=== PATIENT | male | born 1995 | race Caucasian/White ===

== ENCOUNTER → 2016-11-05 | Outpatient (CLI) | payer BC ==
[~2016-11-05] VITALS: Ht 177.8 cm; Wt 63.0 kg
[~2016-11-05] MED LIST: ACETAMINOPHEN 325 MG TABLET/CAPLET (TYLENOL) ONE; ACETAMINOPHEN 325 MG TABLET/CAPLET (TYLENOL) PO SCH; AZIT-21 PO; AZTH50T; CATHETER FLUSH 10 ML SYR IV PRN; HYDROCORTISONE 100 MG/2 ML (Solu-CORTEF) VIAL IV SCH; HYDROCORTISONE 100 MG/2 ML (Solu-CORTEF) VIAL ONE; INFLIXIMAB FOR IV SCH; LNS30CCR; MNTL10T; MNTL10T PO; MULT1CAP27 PO; MULT1TAB63; NORMAL SALINE IV SCH; OSLT75C PO; PROMETHAZINE INJ 25 MG/ML (PHENERGAN) AMP IV SCH; REMICADE; REMICAID; [UNRECOGNIZED DRUG - OTHER]; [UNRECOGNIZED DRUG - OTHER]; diphenhydrAMINE 50 MG/ML INJ (BENADRYL) IV SCH; diphenhydrAMINE 50 MG/ML INJ (BENADRYL) ONE
[2016-11-05 13:56] LABS: BASOPHILS % (AUTO) 0 % (0-10); EOSINOPHILS # (AUTO) 0.1 10^3/uL (0.0-0.3); EOSINOPHILS % (AUTO) 1 % (0-10); LYMPHOCYTES % (AUTO) 30 % (12-44); MEAN CORPUSCULAR HEMOGLOBIN 29 PG (25-34); MEAN CORPUSCULAR HGB CONC 35 G/DL (32-36); MEAN CORPUSCULAR VOLUME 83 FL (80-99); MEAN PLATELET VOLUME 9.2 FL (7.4-10.4); MONOCYTES # (AUTO) 0.5 X 10^3 (0.0-1.0); MONOCYTES % (AUTO) 7 % (0-12); NEUTROPHILS # (AUTO) 4.3 X 10^3 (1.8-7.8); NEUTROPHILS % (AUTO) 62 % (42-75); PLATELET COUNT 228 10^3/uL (130-400); RED BLOOD COUNT 5.22 10^6/uL (4.35-5.85); RED CELL DISTRIBUTION WIDTH 13.1 % (10.0-14.5); WHITE BLOOD COUNT 6.8 10^3/uL (4.3-11.0)
[2016-11-05 14:14] LABS: ALANINE AMINOTRANSFERASE 16 U/L (0-55); ALBUMIN 4.6 G/DL (3.2-4.5); ANION GAP 10 MMOL/L (5-14); ASPARTATE AMINO TRANSFERASE 16 U/L (5-34); BILIRUBIN,DIRECT 0.1 MG/DL (0.0-0.3); BILIRUBIN,INDIRECT 0.3 MG/DL; BILIRUBIN,TOTAL 0.4 MG/DL (0.1-1.0); BLOOD UREA NITROGEN 14 MG/DL (7-18); BUN/CREATININE RATIO 14; CALCIUM 9.4 MG/DL (8.5-10.1); CARBON DIOXIDE 29 MMOL/L (21-32); CHLORIDE 103 MMOL/L (98-107); CREATININE SERUM 1.02 MG/DL (0.60-1.30); GFR ESTIMATED > 60; GLUCOSE 87 MG/DL (70-105); POTASSIUM 4.2 MMOL/L (3.6-5.0); SODIUM 142 MMOL/L (135-145); TOTAL PROTEIN 6.9 G/DL (6.4-8.2)
[2016-11-05 14:15] VITALS: BP 109/64
[2016-11-05 14:36] LABS: THYROID STIMULATING HORMONE 0.69 UIU/ML (0.35-4.94)
[2016-11-05 16:23] VITALS: BP 109/64
== END ==
LOC: SDC 13:14
PROVIDERS: ATTEND Family Medicine
DX: K50.90 Crohn's disease, unspecified, without complications (principal)
CPT/HCPCS: 36415; 80053; 80076; 84443; 85025; 96365; 96366; 96374; 96375

== ENCOUNTER → 2017-01-01 | Outpatient (CLI) | payer BC ==
[~2017-01-01] MED LIST changes: -ACETAMINOPHEN 325 MG TABLET/CAPLET (TYLENOL) ONE; -ACETAMINOPHEN 325 MG TABLET/CAPLET (TYLENOL) PO SCH; -CATHETER FLUSH 10 ML SYR IV PRN; -HYDROCORTISONE 100 MG/2 ML (Solu-CORTEF) VIAL IV SCH; -HYDROCORTISONE 100 MG/2 ML (Solu-CORTEF) VIAL ONE; -INFLIXIMAB FOR IV SCH; -NORMAL SALINE IV SCH; -PROMETHAZINE INJ 25 MG/ML (PHENERGAN) AMP IV SCH; -diphenhydrAMINE 50 MG/ML INJ (BENADRYL) IV SCH; -diphenhydrAMINE 50 MG/ML INJ (BENADRYL) ONE
[2017-01-02 15:44] LABS: VARICELLA IGM ZOSTER AB <1:10 (<1:10)
[2017-01-05 09:27] LABS: VARICELLA IGG ZOSTER AB 3688.0 H INDEX (0.0-134.9); VARICELLA ZOSTER IGG IMMUNITY POSITIVE (NEGATIVE)
== END ==
LOC: LAB 14:37
PROVIDERS: ATTEND Nurse Practitioner
DX: Z02.0 Encounter for examination for admission to educational institution (principal)
CPT/HCPCS: 36415; 86787

== ENCOUNTER 2017-01-07 13:36 | Outpatient (RCR) | payer BC ==
[~2017-01-07] VITALS: Ht 177.8 cm; Wt 64.4 kg
[2017-01-07 13:41] VITALS: BP 121/67
[2017-01-07] MEDS ORDERED: ACETAMINOPHEN 325 MG TABLET/CAPLET (TYLENOL) PO ONE (14:00)
[2017-01-07] MEDS ORDERED: diphenhydrAMINE 50 MG/ML INJ (BENADRYL) IV SCH (14:00)
[2017-01-07] MEDS ORDERED: LIDOCAINE 1% 10 MG/ML 0.2 ML SYR (FOR IV START) INJ ONE (14:00)
[2017-01-07] MEDS ORDERED: HYDROCORTISONE 100 MG/2 ML (Solu-CORTEF) VIAL IV ONE (14:00)
[2017-01-07] MEDS ORDERED: PROMETHAZINE INJ 25 MG/ML (PHENERGAN) AMP IV ONE (14:00)
[2017-01-07] MEDS ORDERED: inFLIXimab 300 MG/NS 250 ML (EXCEL) IV ONE ×2 (14:00)
[2017-01-07] MEDS ORDERED: LIDOCAINE 1% 10 MG/ML 0.2 ML SYR (FOR IV START) ONE (14:03)
== END 2017-04-07 | disposition home or self-care (01) ==
LOC: SDC 13:36
PROVIDERS: ATTEND Family Medicine
DX: K50.90 Crohn's disease, unspecified, without complications (principal)
CPT/HCPCS: 96365; 96366; 96374; 96375

== ENCOUNTER → 2017-03-13 | Outpatient (CLI) | payer BC ==
[~2017-03-13] VITALS: Ht 177.8 cm; Wt 64.4 kg
[~2017-03-13] MED LIST changes: +ACETAMINOPHEN 325 MG TABLET/CAPLET (TYLENOL) PO SCH; +HYDROCORTISONE 100 MG/2 ML (Solu-CORTEF) VIAL IV SCH; +LIDOCAINE 1% 10 MG/ML 0.2 ML SYR (FOR IV START) ONE; +PROMETHAZINE INJ 25 MG/ML (PHENERGAN) AMP IV SCH; +diphenhydrAMINE 50 MG/ML INJ (BENADRYL) IV SCH; +inFLIXimab 300 MG/NS 250 ML (EXCEL) IV SCH
[2017-03-13 10:55] LABS: BASOPHILS % (AUTO) 0 % (0-10); EOSINOPHILS % (AUTO) 1 % (0-10); LYMPHOCYTES # (AUTO) 1.4 X 10^3 (1.0-4.0); LYMPHOCYTES % (AUTO) 21 % (12-44); MEAN CORPUSCULAR HEMOGLOBIN 28 PG (25-34); MEAN CORPUSCULAR HGB CONC 34 G/DL (32-36); MEAN CORPUSCULAR VOLUME 84 FL (80-99); MEAN PLATELET VOLUME 9.6 FL (7.4-10.4); MONOCYTES # (AUTO) 0.7 X 10^3 (0.0-1.0); MONOCYTES % (AUTO) 11 % (0-12); NEUTROPHILS # (AUTO) 4.4 X 10^3 (1.8-7.8); NEUTROPHILS % (AUTO) 68 % (42-75); PLATELET COUNT 202 10^3/uL (130-400); RED BLOOD COUNT 5.32 10^6/uL (4.35-5.85); RED CELL DISTRIBUTION WIDTH 13.2 % (10.0-14.5); WHITE BLOOD COUNT 6.5 10^3/uL (4.3-11.0)
[2017-03-13 11:21] LABS: ALBUMIN 4.7 GM/DL (3.2-4.5); BILIRUBIN,DIRECT 0.1 MG/DL (0.0-0.3); BILIRUBIN,INDIRECT 0.3 MG/DL; BILIRUBIN,TOTAL 0.4 MG/DL (0.1-1.0); ICTERUS 0.4 (-100-1.9); TOTAL PROTEIN 7.4 GM/DL (6.4-8.2)
[2017-03-13 12:30] VITALS: BP 111/67
== END ==
LOC: SDC 08:41
PROVIDERS: ATTEND Family Medicine
DX: K50.90 Crohn's disease, unspecified, without complications (principal)
CPT/HCPCS: 36415; 80076; 85025

== ENCOUNTER → 2017-05-14 | Outpatient (CLI) | payer BC ==
[~2017-05-14] VITALS: Ht 177.8 cm; Wt 66.7 kg
[~2017-05-14] MED LIST changes: +ACETAMINOPHEN 325 MG TABLET/CAPLET (TYLENOL) ONE; +CATHETER FLUSH 10 ML SYR IV PRN; +HYDROCORTISONE 100 MG/2 ML (Solu-CORTEF) VIAL ONE; -LIDOCAINE 1% 10 MG/ML 0.2 ML SYR (FOR IV START) ONE; +diphenhydrAMINE 50 MG/ML INJ (BENADRYL) ONE
[2017-05-14 09:42] VITALS: BP 104/73
[2017-05-14 10:24] VITALS: BP 104/73
[2017-05-14 13:22] VITALS: BP 104/73
== END ==
LOC: EDSTATUS 04-08 09:00 → SDC 09:00
PROVIDERS: ATTEND Family Medicine
DX: K50.90 Crohn's disease, unspecified, without complications (principal)
CPT/HCPCS: 96365; 96366; 96375

== ENCOUNTER 2018-07-19 15:35 | Outpatient (RCR) | payer BC, OTHER ==
[~2018-07-19 15:35] MED LIST changes: -ACETAMINOPHEN 325 MG TABLET/CAPLET (TYLENOL) ONE; -ACETAMINOPHEN 325 MG TABLET/CAPLET (TYLENOL) PO SCH; -CATHETER FLUSH 10 ML SYR IV PRN; -HYDROCORTISONE 100 MG/2 ML (Solu-CORTEF) VIAL IV SCH; -HYDROCORTISONE 100 MG/2 ML (Solu-CORTEF) VIAL ONE; -PROMETHAZINE INJ 25 MG/ML (PHENERGAN) AMP IV SCH; -diphenhydrAMINE 50 MG/ML INJ (BENADRYL) IV SCH; -diphenhydrAMINE 50 MG/ML INJ (BENADRYL) ONE; -inFLIXimab 300 MG/NS 250 ML (EXCEL) IV SCH
[2018-07-19 15:54] LABS: MEAN PLATELET VOLUME 8.4 FL (7.4-10.4); RED BLOOD COUNT 5.26 10^6/uL (4.35-5.85); RED CELL DISTRIBUTION WIDTH 14.2 % (10.0-14.5); WHITE BLOOD COUNT 8.4 10^3/uL (4.3-11.0)
[2018-09-07] MEDS ORDERED: BUDE9TAB2 PO (10:52)
== END 2018-10-17 | disposition home or self-care (01) ==
LOC: LAB 15:35
PROVIDERS: ATTEND Internal Medicine Gastroenterology
DX: R19.7 Diarrhea, unspecified (principal); K50.00 Crohn's disease of small intestine without complications
CPT/HCPCS: 36415; 82274; 85027; 86141; 87324; 87449; 89055

== ENCOUNTER → 2018-08-02 | Outpatient (CLI) | payer BC ==
[~2018-08-02] MED LIST changes: +BARIUM SUSPENSION 60% (LIQUID EZ PAQUE) 240 ML DOSE PO ONE
--- NOTE | 2018-08-02 11:23 | Diagnostic Imaging Report ---
INDICATION: Crohn's disease. Patient currently complains of weight loss and diarrhea. A small bowel study was performed with serial radiographs of the abdomen after ingestion of barium contrast. In addition, fluoroscopy of the abdomen was performed with spot imaging obtained of the small bowel utilizing 2 minutes and 5 seconds of fluoroscopy. The preliminary radiograph of the abdomen is unremarkable. No bowel obstruction is seen. No pathologic calcifications are seen. Initial radiograph demonstrates contrast within the stomach with prompt passage of barium into proximal small bowel loops which appear unremarkable. The stomach appears unremarkable. There is normal progression of contrast through the small bowel loops. No small bowel obstruction or abnormally dilated small bowel loops are seen. There are some distal small bowel loops in the right lower quadrant which demonstrate some persistent luminal narrowing and slight irregularity, suspicious for involvement by Crohn's disease. No definite fistula formation is seen. Visualized nondistended colon appears unremarkable. IMPRESSION: There does appear to be some inflammation involving distal small bowel loops in the right lower quadrant, suggestive of of active Crohn's. No bowel obstruction or fistula formation is identified. Dictated by: Dictated on workstation # [id number]
== END ==
LOC: RAD 07:41
PROVIDERS: ATTEND Internal Medicine Gastroenterology
DX: K50.90 Crohn's disease, unspecified, without complications (principal)
CPT/HCPCS: 74250

== ENCOUNTER 2018-09-07 10:45 | Outpatient (CLI) | payer BC ==
[~2018-09-07] VITALS: Ht 177.8 cm; Wt 54.9 kg
[~2018-09-07 10:45] MED LIST changes: -BARIUM SUSPENSION 60% (LIQUID EZ PAQUE) 240 ML DOSE PO ONE
[2018-09-07] MEDS ORDERED: BUDE9TAB2 PO (10:52)
== END 2018-09-07 11:31 ==
LOC: PREOP 10:45
PROVIDERS: ATTEND Surgery
DX: Z01.818 Encounter for other preprocedural examination (principal)

== ENCOUNTER → 2018-09-13 | Day surgery (SDC) | payer BC, OTHER ==
[~2018-09-13] VITALS: Ht 177.8 cm; Wt 54.9 kg
[~2018-09-13] MED LIST changes: +BUDE9TAB2 PO; +MIDAZOLAM 2 MG/2 ML (VERSED) VIAL IVP ONE; +MIDAZOLAM 2 MG/2 ML (VERSED) VIAL ONE; +NS IV 500 ML 500 ML IV PRN; +NS IV 500 ML 500 ML ONE; +fentaNYL INJECTION 100 MCG/2 ML AMP IVP ONE; +fentaNYL INJECTION 100 MCG/2 ML AMP ONE
[2018-09-13 10:25] VITALS: BP 96/71
--- OUTSIDE RECORDS SUMMARY | 2018-09-13 10:42 | XMS REPORT ---
Author Author ANDREE ARAUJO [facility] e[employer] Address Unknown Phone Unavailable Care Team Providers Care Automotive Sales Executive Name Role Phone ANDREE ARAUJO CP Unavailable Allergies No Known Allergies Problems Problem Type Condition Code Onset Dates Condition Status Problem MENINGOCOCCAL DX V03.89 Active Assessment Encounter for immunization Z23 Active Problem PPV23 (PNEUMOVAX) DX V03.82 Active Medications No Known Medications Procedures Procedure Coding System Code Date SINGLE IMMUNIZATION ADMIN CPT-4 04236 Aug 29, 2015 GARDASIL (HPV-3 DOSE) CPT-4 78054 Aug 29, 2015 Results No Known Results Immunizations Vaccine Administration Date GARDASIL (HPV-3 DOSE) Aug 29, 2015 Summary Purpose eClinicalWorks Submission
--- OUTSIDE RECORDS SUMMARY | 2018-09-13 10:42 | XMS REPORT | Clinical Summary ---
Author Author [facility] Organization [facility] Address Unknown Phone Unavailable Care Team Providers Care Rayon Tester Name Role Phone PCP Unavailable Source Comments Some departments are not documenting in the electronic medical record. If you do not see the information that you expected, contact Release of Information in the Health Information Management department at [phone] for further assistance in locating additional records.[facility] Allergies Not on File Medications Not on file Active Problems Not on file Social History Date Tobacco Use Types Packs/Day Years Used Never Assessed Sex Assigned at Date Recorded Not on file Industry Job Start Date Occupation Not on file Not on file Not on file Travel End Travel History Travel Start No recent travel history available. Last Filed Vital Signs Not on file Plan of Treatment Health Maintenance Due Date Last Done Comments PHYSICAL (COMPREHENSIVE) 2001 EXAM HIV SCREENING 2009 DTAP/TDAP VACCINES ( - 2012 Tdap) INFLUENZA VACCINE 04/28/2018 Results Not on filefrom Last 3 Months
--- OUTSIDE RECORDS SUMMARY | 2018-09-13 10:42 | XMS REPORT ---
Author Author ANDREE ARAUJO [facility] Address [address] [place] [address] Care Team Providers Care Roller Engraver Name Role Phone GAYLE ANDREE Unavailable PROBLEMS Type Condition ICD9-CM Code [id number] Code Onset Dates Condition Status SNOMED Code Problem PPV23 (PNEUMOVAX) DX V03.82 Active 52206929 Problem MENINGOCOCCAL DX V03.89 Active 48480465 ALLERGIES No Information ENCOUNTERS Encounter Location Date Diagnosis [place] [id number] [place] [address] Jun, Encounter for immunization Z23 [place] [id number] [place] [address] 079[address]- 8556 Dec, Visit for TB skin test Z11.1 [place] [id number] [place] [address] 62752- 8983 Aug, Encounter for immunization Z23 [facility] [id number] [place] [address] 05553- 6641 Mar, GARDASIL (HPV) DX V04.89 [place] [id number] [place] [address] 675[address]- 7927 January, GARDASIL (HPV) DX V04.89 [place] [id number] [place] [address] 54251- 9757 Jun, [place] [id number] [place] [address] 67969- 3601 Jun, [place] [id number] [place] [address] 61789- [phone] Jun, [place] [id number] [place] [address] 69901- 4279 Mar, [facility] [address] [facility] [id number] [place] [address] Nov, IMMUNIZATIONS Vaccine Route Administration Date Status FLUARIX QUAD (3 AND UP) 2017 IM Intramuscular Jul 23, 2017 Administered SOCIAL HISTORY Never Assessed REASON FOR VISIT Flu shot- Gwen Davenport RN PLAN OF CARE VITAL SIGNS MEDICATIONS Unknown Medications RESULTS No Results PROCEDURES Procedure Date Ordered Result Body Site FLUARIX QUAD (3 AND UP) 2017 Jul 23, 2017 SINGLE IMMUNIZATION ADMIN Jul 23, 2017 INSTRUCTIONS MEDICATIONS ADMINISTERED No Known Medications
--- OUTSIDE RECORDS SUMMARY | 2018-09-13 10:42 | XMS REPORT ---
Author Author ANDREE ARAUJO [facility] Address [address] [place] [address] Care Team Providers Care Review Rn Name Role Phone GAYLE ANDREE Unavailable PROBLEMS Type Condition ICD9-CM Code XON89-CT Code Onset Dates Condition Status SNOMED Code Problem PPV23 (PNEUMOVAX) DX V03.82 Active 25556319 Problem MENINGOCOCCAL DX V03.89 Active 26203907 ALLERGIES No Information ENCOUNTERS Encounter Location Date Diagnosis [place] [id number] [place] [address]- [address]3 Jun, Encounter for immunization Z23 [place] [address] [phone] Jun, Encounter for immunization Z23 [place] [id number] [place] [address] 33707- 3131 Dec, Visit for TB skin test Z11.1 [place] [id number] [place] [address] 45896- 7201 Aug, Encounter for immunization Z23 [place] [id number] [place] [address] 60269- 6097 Mar, GARDASIL (HPV) DX V04.89 [place] [id number] [place] [address] 20512- 3313 January, GARDASIL (HPV) DX V04.89 [place] [id number] [place] [address] 94146- 4149 Jun, [place] [id number] [place] [address] 89039- 3101 Jun, [place] [id number] [place] [address] 36375- 2546 Jun, [facility] [address] [facility] [id number] [place] [address] Mar, [facility] [address] [facility] [id number] [address] Nov, IMMUNIZATIONS Vaccine Route Administration Date Status FLULAVAL QUAD 0.5ML (6 MO & UP) 2018 IM Intramuscular Jul 02, 2018 Administered SOCIAL HISTORY Never Assessed REASON FOR VISIT Flu shot-awoods PLAN OF CARE VITAL SIGNS MEDICATIONS Unknown Medications RESULTS No Results PROCEDURES Procedure Date Ordered Result Body Site FLULAVAL QUAD 0.5ML (6 MO AND UP) 2018 Jul 02, 2018 SINGLE IMMUNIZATION ADMIN Jul 02, 2018 INSTRUCTIONS MEDICATIONS ADMINISTERED No Known Medications
--- OUTSIDE RECORDS SUMMARY | 2018-09-13 10:43 | XMS REPORT | Continuity of Care Document ---
Author Author [facility] Organization [facility] Address Unknown Phone Unavailable Allergies Active Description Code Type Severity Reaction Onset Reported/Identified Relationship to Patient Clinical Status Yes mesalamine [id number] Drug Allergy Unknown N/A 08/26/2007 Yes mesalamine [id number] Drug Allergy Mild SWELLING 09/07/2018 Medications There is no data. Problems Date Dx Coded Attending Type Code Diagnosis Diagnosed By 01/22/2009 ANDREE ARAUJO DO V04.81 FLU SHOT 02/22/2009 ANDREE ARAUJO DO V06.5 DT, TETANUS-DIPHTHERIA [Td] 05/17/2009 Ot 555.9 08/21/2009 Ot 555.9 11/20/2009 Ot 555.9 01/22/2010 Ot 555.9 02/28/2010 Ot 555.9 03/24/2010 Ot 555.9 03/24/2010 Ot V58.69 07/29/2010 Ot 555.9 07/29/2010 Ot V58.69 10/21/2010 Ot 555.9 10/21/2010 Ot V58.69 11/23/2010 Ot 079.99 VIRAL INFECTION NOS 11/23/2010 Ot 477.9 ALLERGIC RHINITIS NOS 11/23/2010 Ot 555.9 REGIONAL ENTERITIS NOS 11/23/2010 Ot 780.60 FEVER, UNSPECIFIED 11/23/2010 Ot V58.69 OTH MED,LT, CURRENT USE 05/23/2011 ANDREE ARAUJO DO V05.3 HEP A (PED/ADOL 2-DOSE) DX 10/14/2011 Ot 555.9 REGIONAL ENTERITIS NOS 10/14/2011 Ot V58.69 OTH MED,LT, CURRENT USE 02/17/2012 Ot 555.9 REGIONAL ENTERITIS NOS 02/17/2012 Ot V58.69 OTH MED,LT, CURRENT USE 04/22/2012 ANDREE ARAUJO DO V03.89 MENINGOCOCCAL DX 06/22/2012 Ot 555.9 REGIONAL ENTERITIS NOS 06/22/2012 Ot V58.69 OTH MED,LT, CURRENT USE 07/05/2012 ANDREE ARAUJO DO V03.82 PPV23 (PNEUMOVAX) DX 10/25/2012 Ot 555.9 REGIONAL ENTERITIS NOS 10/25/2012 Ot V58.69 OTH MED,LT, CURRENT USE 04/06/2013 MARY ORDONEZ MD Ot 555.9 REGIONAL ENTERITIS NOS 04/06/2013 MARY ORDONEZ MD Ot V58.69 OTH MED,LT,CURRENT USE 08/16/2014 MARY ORDONEZ MD Ot 555.9 09/04/2014 MARY ORDONEZ MD Ot 555.9 10/12/2014 Ot 783.43 10/12/2014 Ot 555.9 10/12/2014 Ot 259.0 10/12/2014 Ot 555.9 10/12/2014 Ot V58.69 10/12/2014 Ot 555.9 10/12/2014 Ot V58.69 10/12/2014 Ot 555.9 10/12/2014 Ot V58.69 10/12/2014 Ot 555.9 10/12/2014 Ot V58.69 10/12/2014 Ot 555.9 10/12/2014 Ot V58.69 10/12/2014 Ot 490 10/12/2014 Ot 555.9 10/12/2014 Ot 555.9 10/12/2014 Ot V58.69 10/12/2014 Ot 719.47 10/12/2014 MARY ORDONEZ MD Ot 555.9 10/12/2014 MARY ORDONEZ MD Ot 555.9 10/12/2014 MARY ORDONEZ MD Ot 555.9 10/12/2014 MARY ORDONEZ MD Ot 555.9 10/12/2014 MARY ORDONEZ MD Ot 555.9 01/05/2015 Ot 555.9 03/13/2015 MARY ORDONEZ MD Ot 555.9 06/07/2015 MARY ORDONEZ MD Ot 555.9 06/07/2015 MARY ORDONEZ MD Ot V58.69 06/21/2015 MARY ORDONEZ MD Ot 555.9 06/21/2015 APRIL ORDONEZ MDAN J Ot V58.69 08/09/2015 MERY LANDRUM, MARY Martinez Ot 555.9 08/09/2015 MARY ORDONEZ MD Ot V58.69 09/05/2015 MARY ORDONEZ MD Ot K50.90 11/08/2015 ABBEY JACKMAN, JAYSHREE S Ot K50.819 12/06/2015 MARY ORDONEZ MD Ot K50.90 01/09/2016 CONNIEER , JAYSHREE S Ot K50.90 03/02/2016 MARY ORDONEZ MD Ot K50.90 CROHN'S DISEASE, UNSPECIFIED, WITHOUT CO 03/04/2016 MARY ORDONEZ MD Ot K50.90 CROHN'S DISEASE, UNSPECIFIED, WITHOUT CO 03/19/2016 MARY ORDONEZ MD Ot K50.90 CROHN'S DISEASE, UNSPECIFIED, WITHOUT CO 04/09/2016 MARY ORDONEZ MD Ot K50.90 CROHN'S DISEASE, UNSPECIFIED, WITHOUT CO 05/01/2016 CONNIEER , JAYSHREE S Ot K50.90 CROHN'S DISEASE, UNSPECIFIED, WITHOUT CO 05/26/2016 ORENDER DO, JAYSHREE S Ot K50.90 CROHN'S DISEASE, UNSPECIFIED, WITHOUT CO 06/12/2016 ORENDER DO, JAYSHREE S Ot K50.90 CROHN'S DISEASE, UNSPECIFIED, WITHOUT CO 06/13/2016 MARY ORDONEZ MD Ot K50.90 CROHN'S DISEASE, UNSPECIFIED, WITHOUT CO 06/26/2016 Ot 555.9 REGIONAL ENTERITIS NOS 06/26/2016 Ot V58.69 OTH MED,LT, CURRENT USE 06/26/2016 Ot 555.9 REGIONAL ENTERITIS NOS 06/26/2016 Ot V58.69 OTH MED,LT, CURRENT USE 06/26/2016 Ot 555.9 REGIONAL ENTERITIS NOS 06/26/2016 Ot V58.69 OTH MED,LT, CURRENT USE 06/26/2016 Ot 555.9 REGIONAL ENTERITIS NOS 06/26/2016 Ot V58.69 OTH MED,LT, CURRENT USE 06/26/2016 Ot 490 BRONCHITIS NOS 06/26/2016 Ot 555.9 REGIONAL ENTERITIS NOS 06/26/2016 Ot 555.9 REGIONAL ENTERITIS NOS 06/26/2016 Ot V58.69 OTH MED,LT, CURRENT USE 06/26/2016 Ot 719.47 JOINT PAIN- ANKLE 06/26/2016 MERY LANDRUM, MARY Martinez Ot 555.9 REGIONAL ENTERITIS NOS 06/26/2016 MERY LANDRUM, MARY Martinez Ot 555.9 REGIONAL ENTERITIS NOS 06/26/2016 MERY LANDRUM, MARY Martinez Ot 555.9 REGIONAL ENTERITIS NOS 06/26/2016 MERY LANDRUM, MARY Martinez Ot 555.9 REGIONAL ENTERITIS NOS 06/26/2016 MERY LANDRUM, MARY Martinez Ot 555.9 REGIONAL ENTERITIS NOS 06/26/2016 MERY LANDRUM, MARY Martinez Ot 555.9 REGIONAL ENTERITIS NOS 06/26/2016 JAYSHERE LUCIANO DO Ot 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 06/26/2016 JAYSHREE LUCIANO DO Ot K50.90 CROHN'S DISEASE, UNSPECIFIED, WITHOUT CO 06/26/2016 JAYSHREE LUCIANO DO Ot K50.90 CROHN'S DISEASE, UNSPECIFIED, WITHOUT CO 07/02/2016 Ot 555.9 REGIONAL ENTERITIS NOS 07/02/2016 Ot V58.69 OTH MED,LT, CURRENT USE 07/02/2016 Ot 555.9 REGIONAL ENTERITIS NOS 07/02/2016 Ot V58.69 OTH MED,LT, CURRENT USE 07/02/2016 Ot 555.9 REGIONAL ENTERITIS NOS 07/02/2016 Ot V58.69 OTH MED,LT, CURRENT USE 07/02/2016 Ot 490 BRONCHITIS NOS 07/02/2016 Ot 555.9 REGIONAL ENTERITIS NOS 07/02/2016 Ot 555.9 REGIONAL ENTERITIS NOS 07/02/2016 Ot V58.69 OTH MED,LT, CURRENT USE 07/02/2016 Ot 719.47 JOINT PAIN- ANKLE 07/02/2016 MERY LANDRUM, MARY Martinez Ot 555.9 REGIONAL ENTERITIS NOS 07/02/2016 MERY LANDRUM, MARY Martinez Ot 555.9 REGIONAL ENTERITIS NOS 07/02/2016 MERY LANDRUM, MARY Martinez Ot 555.9 REGIONAL ENTERITIS NOS 07/02/2016 MARY ORDONEZ MD Ot V58.69 OTH MED,LT,CURRENT USE 07/02/2016 MARY ORDONEZ MD Ot 555.9 REGIONAL ENTERITIS NOS 07/02/2016 MARY ORDONEZ MD Ot 555.9 REGIONAL ENTERITIS NOS 07/02/2016 MARY ORDONEZ MD Ot 555.9 REGIONAL ENTERITIS NOS 07/02/2016 MARY ORDONEZ MD Ot 555.9 REGIONAL ENTERITIS NOS 07/02/2016 MARY ORDONEZ MD Ot 555.9 REGIONAL ENTERITIS NOS 07/02/2016 MARY ORDONEZ MD Ot V58.69 OTH MED,LT,CURRENT USE 07/02/2016 MARY ORDONEZ MD Ot 555.9 REGIONAL ENTERITIS NOS 07/02/2016 MARY ORDONEZ MD Ot V58.69 OTH MED,LT,CURRENT USE 07/02/2016 MARY ORDONEZ MD Ot 555.9 REGIONAL ENTERITIS NOS 07/02/2016 MARY ORDONEZ MD Ot 555.9 REGIONAL ENTERITIS NOS 07/02/2016 Ot 555.9 REGIONAL ENTERITIS NOS 07/02/2016 MARY ORDONEZ MD Ot 555.9 REGIONAL ENTERITIS NOS 07/02/2016 MARY ORDONEZ MD Ot 555.9 REGIONAL ENTERITIS NOS 07/02/2016 MARY ORDONEZ MD Ot V58.69 OTH MED,LT,CURRENT USE 07/02/2016 MARY ORDONEZ MD Ot K50.90 CROHN'S DISEASE, UNSPECIFIED, WITHOUT CO 07/02/2016 JAYSHREE LUCIANO DO S Ot 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 07/02/2016 ALEXUS LUCIANO DOLINE S Ot K50.90 CROHN'S DISEASE, UNSPECIFIED, WITHOUT CO 07/02/2016 MARY ORDNOEZ MD Ot K50.90 CROHN'S DISEASE, UNSPECIFIED, WITHOUT CO 07/02/2016 ORENDER DOLDJAYSHREE S Ot K50.90 CROHN'S DISEASE, UNSPECIFIED, WITHOUT CO 07/04/2016 NIYAHNDLD CERRATO DOQUELINE S Ot K50.90 CROHN'S DISEASE, UNSPECIFIED, WITHOUT CO 07/08/2016 ORENDER DO, JAYSHREE S Ot K50.90 CROHN'S DISEASE, UNSPECIFIED, WITHOUT CO 07/17/2016 ORENDER DO, JAYSHREE S Ot K50.90 CROHN'S DISEASE, UNSPECIFIED, WITHOUT CO 08/12/2016 MERY LANDRUM, MARY Martinez Ot K50.90 CROHN'S DISEASE, UNSPECIFIED, WITHOUT CO 09/03/2016 MERY LANDRUM, MARY Martinez Ot K50.90 CROHN'S DISEASE, UNSPECIFIED, WITHOUT CO 09/03/2016 MERY LANDRUM, MARY Martinez Ot K50.90 CROHN'S DISEASE, UNSPECIFIED, WITHOUT CO 09/03/2016 RAYMOND PERALTA Ot K50.90 CROHN'S DISEASE, UNSPECIFIED, WITHOUT CO 09/03/2016 RAYMOND PERALTAP Ot K50.90 CROHN'S DISEASE, UNSPECIFIED, WITHOUT CO 09/03/2016 RAYMOND PERALTAP Ot K50.90 CROHN'S DISEASE, UNSPECIFIED, WITHOUT CO 09/17/2016 RAYMOND PERALTA LEARNING OFFICER Ot K50.90 CROHN'S DISEASE, UNSPECIFIED, WITHOUT CO 11/12/2016 ORENDER DO, JAYSHREE S Ot K50.90 CROHN'S DISEASE, UNSPECIFIED, WITHOUT CO 11/14/2016 ORENDER DO, JAYSHREE S Ot K50.90 CROHN'S DISEASE, UNSPECIFIED, WITHOUT CO 11/20/2016 ORENDER DO, JAYSHREE S Ot K50.90 CROHN'S DISEASE, UNSPECIFIED, WITHOUT CO 12/24/2016 ORENDER DO, JAYSHREE S Ot K50.90 CROHN'S DISEASE, UNSPECIFIED, WITHOUT CO 12/24/2016 ORENDER DO, JAYSHREE S Ot K50.90 CROHN'S DISEASE, UNSPECIFIED, WITHOUT CO 01/01/2017 Ot 555.9 REGIONAL ENTERITIS NOS 01/01/2017 Ot V58.69 OTH MED,LT, CURRENT USE 01/01/2017 Ot 490 BRONCHITIS NOS 01/01/2017 Ot 555.9 REGIONAL ENTERITIS NOS 01/01/2017 Ot 555.9 REGIONAL ENTERITIS NOS 01/01/2017 Ot V58.69 OTH MED,LT, CURRENT USE 01/01/2017 Ot 719.47 JOINT PAIN- ANKLE 01/01/2017 MARY ORDONEZ MD Ot 555.9 REGIONAL ENTERITIS NOS 01/01/2017 MARY ORDONEZ MD Ot 555.9 REGIONAL ENTERITIS NOS 01/01/2017 MARY ORDONEZ MD Ot 555.9 REGIONAL ENTERITIS NOS 01/01/2017 MARY ORDONEZ MD Ot V58.69 OTH MED,LT,CURRENT USE 01/01/2017 MARY ORDONEZ MD Ot 555.9 REGIONAL ENTERITIS NOS 01/01/2017 MARY ORDONEZ MD Ot 555.9 REGIONAL ENTERITIS NOS 01/01/2017 MARY ORDONEZ MD Ot 555.9 REGIONAL ENTERITIS NOS 01/01/2017 MARY ORDONEZ MD Ot 555.9 REGIONAL ENTERITIS NOS 01/01/2017 MARY ORDONEZ MD Ot 555.9 REGIONAL ENTERITIS NOS 01/01/2017 MARY ORDONEZ MD Ot V58.69 OTH MED,LT,CURRENT USE 01/01/2017 MARY ORDONEZ MD Ot 555.9 REGIONAL ENTERITIS NOS 01/01/2017 MARY ORDONEZ MD Ot V58.69 OTH MED,LT,CURRENT USE 01/01/2017 MARY ORDONEZ MD Ot 555.9 REGIONAL ENTERITIS NOS 01/01/2017 MARY ORDONEZ MD Ot 555.9 REGIONAL ENTERITIS NOS 01/01/2017 Ot 555.9 REGIONAL ENTERITIS NOS 01/01/2017 MARY ORDONEZ MD Ot 555.9 REGIONAL ENTERITIS NOS 01/01/2017 MARY ORDONEZ MD Ot 555.9 REGIONAL ENTERITIS NOS 01/01/2017 MARY ORDONEZ MD Ot V58.69 OTH MED,LT,CURRENT USE 01/01/2017 MARY ORDONEZ MD Ot K50.90 CROHN'S DISEASE, UNSPECIFIED, WITHOUT CO 01/01/2017 JAYSHREE LUCIANO DO Ot 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 01/01/2017 ORENDER DO, JAYSHREE S Ot K50.90 CROHN'S DISEASE, UNSPECIFIED, WITHOUT CO 01/01/2017 MERY LANDRUM, MARY Martinez Ot K50.90 CROHN'S DISEASE, UNSPECIFIED, WITHOUT CO 01/01/2017 ORENDER DO, JAYSHREE S Ot K50.90 CROHN'S DISEASE, UNSPECIFIED, WITHOUT CO 01/01/2017 ORENDER DO, JAYSHREE S Ot K50.90 CROHN'S DISEASE, UNSPECIFIED, WITHOUT CO 01/01/2017 RAYMOND PERALTA Ot K50.90 CROHN'S DISEASE, UNSPECIFIED, WITHOUT CO 01/01/2017 ORENDER DO, JAYSHREE S Ot K50.90 CROHN'S DISEASE, UNSPECIFIED, WITHOUT CO 01/16/2017 JOVITA DOWELL APRN Ot Z02.0 ENCOUNTER FOR EXAM FOR ADMISSION TO [facility] 02/12/2017 ORENDER DO, JAYSHREE S Ot K50.90 CROHN'S DISEASE, UNSPECIFIED, WITHOUT CO 03/13/2017 ORENDER DO, JAYSHREE S Ot K50.90 CROHN'S DISEASE, UNSPECIFIED, WITHOUT CO 03/17/2017 ORENDER DO, JAYSHREE S Ot K50.90 CROHN'S DISEASE, UNSPECIFIED, WITHOUT CO 03/26/2017 ORENDER DO, JAYSHREE S Ot K50.90 CROHN'S DISEASE, UNSPECIFIED, WITHOUT CO 04/07/2017 ORENDER DO, JAYSHREE S Ot K50.90 CROHN'S DISEASE, UNSPECIFIED, WITHOUT CO 04/08/2017 ORENDER DO, JAYSHREE S Ot K50.90 CROHN'S DISEASE, UNSPECIFIED, WITHOUT CO 05/05/2017 ORENDER DO, JAYSHREE S Ot K50.90 CROHN'S DISEASE, UNSPECIFIED, WITHOUT CO 05/14/2017 ORENDER DO, JAYSHREE S Ot K50.90 CROHN'S DISEASE, UNSPECIFIED, WITHOUT CO 05/14/2017 ORENDER DO, JAYSHREE S Ot K50.90 CROHN'S DISEASE, UNSPECIFIED, WITHOUT CO 05/14/2017 ORENDER DO, JAYSHREE S Ot K50.90 CROHN'S DISEASE, UNSPECIFIED, WITHOUT CO 05/14/2017 ORENDER DO, JAYSHREE S Ot K50.90 CROHN'S DISEASE, UNSPECIFIED, WITHOUT CO 05/14/2017 ORENDER DO, JAYSHREE S Ot K50.90 CROHN'S DISEASE, UNSPECIFIED, WITHOUT CO 05/18/2017 ORENDER DO, JAYSHREE S Ot K50.90 CROHN'S DISEASE, UNSPECIFIED, WITHOUT CO 06/02/2017 ORENDER DO, JAYSHREE S Ot K50.90 CROHN'S DISEASE, UNSPECIFIED, WITHOUT CO 05/16/2018 Ot 555.9 REGIONAL ENTERITIS NOS 05/16/2018 Ot V58.69 OTH MED,LT, CURRENT USE 05/16/2018 Ot 719.47 JOINT PAIN- ANKLE 05/16/2018 MERY LANDRUM, ROABHAY J Ot 555.9 REGIONAL ENTERITIS NOS 05/16/2018 MERY LANDRUM, MARY J Ot 555.9 REGIONAL ENTERITIS NOS 05/16/2018 MARY ORDONEZ MD J Ot 555.9 REGIONAL ENTERITIS NOS 05/16/2018 MARY ORDONEZ MD Ot V58.69 OTH MED,LT,CURRENT USE 05/16/2018 MERY LANDRUM ROABHAY J Ot 555.9 REGIONAL ENTERITIS NOS 05/16/2018 MERY LANDRUM ROABHAY J Ot 555.9 REGIONAL ENTERITIS NOS 05/16/2018 MERY LANDRUM ROABHAY J Ot 555.9 REGIONAL ENTERITIS NOS 05/16/2018 MERY LANDRUM ROABHAY J Ot 555.9 REGIONAL ENTERITIS NOS 05/16/2018 MERY LANDRUM ROABHAY Martinez Ot 555.9 REGIONAL ENTERITIS NOS 05/16/2018 MERY LANDRUM ROABHAY Martinez Ot V58.69 OTH MED,LT,CURRENT USE 05/16/2018 MERY LANDRUM ROABHAY J Ot 555.9 REGIONAL ENTERITIS NOS 05/16/2018 MARY ORDONEZ MD Ot V58.69 OTH MED,LT,CURRENT USE 05/16/2018 MARY ORDONEZ MD J Ot 555.9 REGIONAL ENTERITIS NOS 05/16/2018 MARY ORDONEZ MD J Ot 555.9 REGIONAL ENTERITIS NOS 05/16/2018 Ot 555.9 REGIONAL ENTERITIS NOS 05/16/2018 MARY ORDONEZ MD J Ot 555.9 REGIONAL ENTERITIS NOS 05/16/2018 JESUS ORDONEZ MDYLAN J Ot 555.9 REGIONAL ENTERITIS NOS 05/16/2018 MERY LANDRUM, MARY Martinez Ot V58.69 OTH MED,LT,CURRENT USE 05/16/2018 MERY LANDRUM, MARY Martinez Ot K50.90 CROHN'S DISEASE, UNSPECIFIED, WITHOUT CO 05/16/2018 ORENDER DO, JAYSHREE S Ot 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 05/16/2018 ORENDER DO, JAYSHREE S Ot K50.90 CROHN'S DISEASE, UNSPECIFIED, WITHOUT CO 05/16/2018 MARY ORDONEZ MD Ot K50.90 CROHN'S DISEASE, UNSPECIFIED, WITHOUT CO 05/16/2018 ORENDER DO, JAYSHREE S Ot K50.90 CROHN'S DISEASE, UNSPECIFIED, WITHOUT CO 05/16/2018 ORENDER DO, JAYSHREE S Ot K50.90 CROHN'S DISEASE, UNSPECIFIED, WITHOUT CO 05/16/2018 RAYMOND PERALTA Ot K50.90 CROHN'S DISEASE, UNSPECIFIED, WITHOUT CO 05/16/2018 ORENDER DO, JAYSHREE S Ot K50.90 CROHN'S DISEASE, UNSPECIFIED, WITHOUT CO 05/16/2018 JOVITA DOWELL APRN Ot Z02.0 ENCOUNTER FOR EXAM FOR ADMISSION TO [facility] 05/16/2018 ORENDER DO, JAYSHREE S Ot K50.90 CROHN'S DISEASE, UNSPECIFIED, WITHOUT CO 05/16/2018 ORENDER DO, JAYSHREE S Ot K50.90 CROHN'S DISEASE, UNSPECIFIED, WITHOUT CO 05/16/2018 Ot 555.9 REGIONAL ENTERITIS NOS 05/16/2018 Ot V58.69 OTH MED,LT, CURRENT USE 05/16/2018 Ot 719.47 JOINT PAIN- ANKLE 05/16/2018 MERY LANDRUM, MARY Martinez Ot 555.9 REGIONAL ENTERITIS NOS 05/16/2018 MARY ORDONEZ MD Ot 555.9 REGIONAL ENTERITIS NOS 05/16/2018 MARY ORDONEZ MD Ot 555.9 REGIONAL ENTERITIS NOS 05/16/2018 MARY ORDONEZ MD Ot V58.69 OTH MED,LT,CURRENT USE 05/16/2018 MARY ORDONEZ MD Ot 555.9 REGIONAL ENTERITIS NOS 05/16/2018 MERY LANDRUM, MARY Martinez Ot 555.9 REGIONAL ENTERITIS NOS 05/16/2018 MERY LANDRUM, MARY Martinez Ot 555.9 REGIONAL ENTERITIS NOS 05/16/2018 MARY ORDONEZ MD Ot 555.9 REGIONAL ENTERITIS NOS 05/16/2018 MARY ORDONEZ MD Ot 555.9 REGIONAL ENTERITIS NOS 05/16/2018 MARY ORDONEZ MD Ot V58.69 OTH MED,LT,CURRENT USE 05/16/2018 MERY LANDRUM, MARY Martinez Ot 555.9 REGIONAL ENTERITIS NOS 05/16/2018 MARY ORDONEZ MD Ot V58.69 OTH MED,LT,CURRENT USE 05/16/2018 MARY ORDONEZ MD Ot 555.9 REGIONAL ENTERITIS NOS 05/16/2018 MARY ORDONEZ MD Ot 555.9 REGIONAL ENTERITIS NOS 05/16/2018 Ot 555.9 REGIONAL ENTERITIS NOS 05/16/2018 MARY ORDONEZ MD Ot 555.9 REGIONAL ENTERITIS NOS 05/16/2018 MARY ORDONEZ MD Ot 555.9 REGIONAL ENTERITIS NOS 05/16/2018 MARY ORDONEZ MD Ot V58.69 OTH MED,LT,CURRENT USE 05/16/2018 MARY ORDONEZ MD Ot K50.90 CROHN'S DISEASE, UNSPECIFIED, WITHOUT CO 05/16/2018 ORENDER DO, JAYSHREE S Ot 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 05/16/2018 ORENDER DO, JAYSHREE S Ot K50.90 CROHN'S DISEASE, UNSPECIFIED, WITHOUT CO 05/16/2018 MARY ORDONEZ MD Ot K50.90 CROHN'S DISEASE, UNSPECIFIED, WITHOUT CO 05/16/2018 ORENDER DO, JAYSHREE S Ot K50.90 CROHN'S DISEASE, UNSPECIFIED, WITHOUT CO 05/16/2018 ORENDER DO, JAYSHREE S Ot K50.90 CROHN'S DISEASE, UNSPECIFIED, WITHOUT CO 05/16/2018 RAYMOND PERALTA Ot K50.90 CROHN'S DISEASE, UNSPECIFIED, WITHOUT CO 05/16/2018 ORENDER , JAYSHREE S Ot K50.90 CROHN'S DISEASE, UNSPECIFIED, WITHOUT CO 05/16/2018 JOVITA DOWELL GONZALEZ Ot Z02.0 ENCOUNTER FOR EXAM FOR ADMISSION TO [facility] 05/16/2018 ORENDER DO, JAYSHREE S Ot K50.90 CROHN'S DISEASE, UNSPECIFIED, WITHOUT CO 05/16/2018 ORENDER DO, JAYSHREE S Ot K50.90 CROHN'S DISEASE, UNSPECIFIED, WITHOUT CO 07/27/2018 PASHA LANDRUM, RITESH Ot 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 07/27/2018 PASHA LANDRUM, RITESH Ot R19.7 DIARRHEA, UNSPECIFIED 08/02/2018 MARY ORDONEZ MD Ot 555.9 REGIONAL ENTERITIS NOS 08/02/2018 MARY ORDONEZ MD Ot 555.9 REGIONAL ENTERITIS NOS 08/02/2018 MARY ORDONEZ MD J Ot 555.9 REGIONAL ENTERITIS NOS 08/02/2018 MARY ORDONEZ MD Ot V58.69 OTH MED,LT,CURRENT USE 08/02/2018 MARY ORDONEZ MD Ot 555.9 REGIONAL ENTERITIS NOS 08/02/2018 MARY ORDONEZ MD Ot 555.9 REGIONAL ENTERITIS NOS 08/02/2018 MARY ORDONEZ MD Ot 555.9 REGIONAL ENTERITIS NOS 08/02/2018 MARY ORDONEZ MD Ot 555.9 REGIONAL ENTERITIS NOS 08/02/2018 MARY ORDONEZ MD J Ot 555.9 REGIONAL ENTERITIS NOS 08/02/2018 MARY ORDONEZ MD Ot V58.69 OTH MED,LT,CURRENT USE 08/02/2018 MARY ORDONEZ MD Ot 555.9 REGIONAL ENTERITIS NOS 08/02/2018 MARY ORDONEZ MD Ot V58.69 OTH MED,LT,CURRENT USE 08/02/2018 MARY ORDONEZ MD Ot 555.9 REGIONAL ENTERITIS NOS 08/02/2018 MARY ORDONEZ MD Ot 555.9 REGIONAL ENTERITIS NOS 08/02/2018 Ot 555.9 REGIONAL ENTERITIS NOS 08/02/2018 MERY LANDRUM, MARY Martinez Ot 555.9 REGIONAL ENTERITIS NOS 08/02/2018 MERY LANDRUM, MARY Martinez Ot 555.9 REGIONAL ENTERITIS NOS 08/02/2018 MERY LANDRUM, MARY Martinez Ot V58.69 OTH MED,LT,CURRENT USE 08/02/2018 MARY ORDONEZ MD Ot K50.90 CROHN'S DISEASE, UNSPECIFIED, WITHOUT CO 08/02/2018 ORENDER DO, JAYSHREE S Ot 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 08/02/2018 ORENDER DO, JAYSHREE S Ot K50.90 CROHN'S DISEASE, UNSPECIFIED, WITHOUT CO 08/02/2018 MARY ORDONEZ MD Ot K50.90 CROHN'S DISEASE, UNSPECIFIED, WITHOUT CO 08/02/2018 ORENDER DO, JAYSHREE S Ot K50.90 CROHN'S DISEASE, UNSPECIFIED, WITHOUT CO 08/02/2018 ORENDER DO, JAYSHREE S Ot K50.90 CROHN'S DISEASE, UNSPECIFIED, WITHOUT CO 08/02/2018 RAYMOND PERALTA Ot K50.90 CROHN'S DISEASE, UNSPECIFIED, WITHOUT CO 08/02/2018 ORENDER DO, JAYSHREE S Ot K50.90 CROHN'S DISEASE, UNSPECIFIED, WITHOUT CO 08/02/2018 JOVITA DOWELL APRN Ot Z02.0 ENCOUNTER FOR EXAM FOR ADMISSION TO [facility] 08/02/2018 ORENDER DO, JAYSHREE S Ot K50.90 CROHN'S DISEASE, UNSPECIFIED, WITHOUT CO 08/02/2018 ORENDER DO, JAYSHREE S Ot K50.90 CROHN'S DISEASE, UNSPECIFIED, WITHOUT CO 08/02/2018 PASHA LANDRUM, RITESH Ot 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 08/02/2018 PASHA LANDRUM, RITESH Ot R19.7 DIARRHEA, UNSPECIFIED 08/03/2018 PASHA LANDRUM, RITESH Ot K50.90 CROHN'S DISEASE, UNSPECIFIED, WITHOUT CO 08/24/2018 RITESH PAK MD Ot K50.90 CROHN'S DISEASE, UNSPECIFIED, WITHOUT CO 08/30/2018 MERY LANDRUM, MARY Martinez Ot 555.9 REGIONAL ENTERITIS NOS 08/30/2018 MERY LANDRUM, MARY Martinez Ot 555.9 REGIONAL ENTERITIS NOS 08/30/2018 MERY LANDRUM, MARY Martinez Ot 555.9 REGIONAL ENTERITIS NOS 08/30/2018 MERY LANDRUM, MARY Martinez Ot 555.9 REGIONAL ENTERITIS NOS 08/30/2018 MERY LANDRUM, MARY Martinez Ot 555.9 REGIONAL ENTERITIS NOS 08/30/2018 MERY LANDRUM, MARY Martinez Ot 555.9 REGIONAL ENTERITIS NOS 08/30/2018 JAYSHREE LUCIANO DO S Ot 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 Results Test Result Range Complete blood count (CBC) with automated white blood cell (WBC) differential - 04/30/16 08:36 Blood leukocytes automated count (number/volume) 4.6 10*3/uL 4.3-11.0 Blood erythrocytes automated count (number/volume) 5.10 10*6/uL 4.35-5.85 Venous blood hemoglobin measurement (mass/volume) 14.3 g/dL 13.3-17.7 Blood hematocrit (volume fraction) 41 % 40-54 Automated erythrocyte mean corpuscular volume 81 [foz_us] 80-99 Automated erythrocyte mean corpuscular hemoglobin (mass per erythrocyte) 28 pg 25-34 Automated erythrocyte mean corpuscular hemoglobin concentration measurement ( mass/volume) 35 g/dL 32-36 Automated erythrocyte distribution width ratio 13.6 % 10.0-14.5 Automated blood platelet count (count/volume) 216 10*3/uL 130-400 Automated blood platelet mean volume measurement 9.2 [foz_us] 7.4-10.4 Automated blood neutrophils/100 leukocytes 49 % 42-75 Automated blood lymphocytes/100 leukocytes 41 % 12-44 Blood monocytes/100 leukocytes 9 % 0-12 Automated blood eosinophils/100 leukocytes 1 % 0-10 Automated blood basophils/100 leukocytes 0 % 0-10 Blood neutrophils automated count (number/volume) 2.3 10*3 1.8-7.8 Blood lymphocytes automated count (number/volume) 1.9 10*3 1.0-4.0 Blood monocytes automated count (number/volume) 0.4 10*3 0.0-1.0 Automated eosinophil count 0.0 10*3/uL 0.0-0.3 Automated blood basophil count (count/volume) 0.0 10*3/uL 0.0-0.1 Automated blood complete blood count (hemogram) panel - 09/03/16 13:25 Blood leukocytes automated count (number/volume) 5.7 10*3/uL 4.3-11.0 Blood erythrocytes automated count (number/volume) 5.49 10*6/uL 4.35-5.85 Venous blood hemoglobin measurement (mass/volume) 15.8 g/dL 13.3-17.7 Blood hematocrit (volume fraction) 45 % 40-54 Automated erythrocyte mean corpuscular volume 83 [foz_us] 80-99 Automated erythrocyte mean corpuscular hemoglobin (mass per erythrocyte) 29 pg 25-34 Automated erythrocyte mean corpuscular hemoglobin concentration measurement ( mass/volume) 35 g/dL 32-36 Automated erythrocyte distribution width ratio 13.2 % 10.0-14.5 Automated blood platelet count (count/volume) 222 10*3/uL 130-400 Automated blood platelet mean volume measurement 9.3 [foz_us] 7.4-10.4 Complete blood count (CBC) with automated white blood cell (WBC) differential - 11/05/16 13:46 Blood leukocytes automated count (number/volume) 6.8 10*3/uL 4.3-11.0 Blood erythrocytes automated count (number/volume) 5.22 10*6/uL 4.35-5.85 Venous blood hemoglobin measurement (mass/volume) 15.1 g/dL 13.3-17.7 Blood hematocrit (volume fraction) 43 % 40-54 Automated erythrocyte mean corpuscular volume 83 [foz_us] 80-99 Automated erythrocyte mean corpuscular hemoglobin (mass per erythrocyte) 29 pg 25-34 Automated erythrocyte mean corpuscular hemoglobin concentration measurement ( mass/volume) 35 g/dL 32-36 Automated erythrocyte distribution width ratio 13.1 % 10.0-14.5 Automated blood platelet count (count/volume) 228 10*3/uL 130-400 Automated blood platelet mean volume measurement 9.2 [foz_us] 7.4-10.4 Automated blood neutrophils/100 leukocytes 62 % 42-75 Automated blood lymphocytes/100 leukocytes 30 % 12-44 Blood monocytes/100 leukocytes 7 % 0-12 Automated blood eosinophils/100 leukocytes 1 % 0-10 Automated blood basophils/100 leukocytes 0 % 0-10 Blood neutrophils automated count (number/volume) 4.3 10*3 1.8-7.8 Blood lymphocytes automated count (number/volume) 2.0 10*3 1.0-4.0 Blood monocytes automated count (number/volume) 0.5 10*3 0.0-1.0 Automated eosinophil count 0.1 10*3/uL 0.0-0.3 Automated blood basophil count (count/volume) 0.0 10*3/uL 0.0-0.1 Comprehensive metabolic panel - 11/05/16 13:46 Serum or plasma sodium measurement (moles/volume) 142 mmol/L 135-145 Serum or plasma potassium measurement (moles/volume) 4.2 mmol/L 3.6-5.0 Serum or plasma chloride measurement (moles/volume) 103 mmol/L 98-107 Carbon dioxide 29 mmol/L 21-32 Serum or plasma anion gap determination (moles/volume) 10 mmol/L 5-14 Serum or plasma urea nitrogen measurement (mass/volume) 14 mg/dL 7-18 Serum or plasma creatinine measurement (mass/volume) 1.02 mg/dL 0.60-1.30 Serum or plasma urea nitrogen/creatinine mass ratio 14 NRG Serum or plasma creatinine measurement with calculation of estimated glomerular filtration rate > NRG Serum or plasma glucose measurement (mass/volume) 87 mg/dL 70-105 Serum or plasma calcium measurement (mass/volume) 9.4 mg/dL 8.5-10.1 Serum or plasma total bilirubin measurement (mass/volume) 0.4 mg/dL 0.1-1.0 Serum or plasma alkaline phosphatase measurement (enzymatic activity/volume) 41 U/L 40-136 Serum or plasma aspartate aminotransferase measurement (enzymatic activity/ volume) 16 U/L 5-34 Serum or plasma alanine aminotransferase measurement (enzymatic activity/volume ) 16 U/L 0-55 Serum or plasma protein measurement (mass/volume) 6.9 g/dL 6.4-8.2 Serum or plasma albumin measurement (mass/volume) 4.6 g/dL 3.2-4.5 Liver function panel (serum or plasma alk phos, alb, total and direct bili, total protein, ALT, AST) - 11/05/16 13:46 Bilirubin direct 0.1 mg/dL 0.0-0.3 Serum or plasma indirect bilirubin measurement (mass/volume) 0.3 mg/ dL NRG THYROID STIMULATING HORMONE - 11/05/16 13:46 THYROID STIMULATING HORMONE 0.69 u[iU]/mL 0.35-4.94 Serum Varicella zoster virus IgG and IgM panel - 01/01/17 14:55 Serum Varicella zoster virus IgM antibody assay by immunoassay (units/volume) < <1:10 Serum Varicella zoster virus IgG antibody detection 3688.0 H 0.0-134.9 Serum Varicella zoster virus IgG antibody detection - 01/01/17 14:55 Serum Varicella zoster virus IgG antibody detection POSITIVE NEGATIVE Complete blood count (CBC) with automated white blood cell (WBC) differential - 03/13/17 10:15 Blood leukocytes automated count (number/volume) 6.5 10*3/uL 4.3-11.0 Blood erythrocytes automated count (number/volume) 5.32 10*6/uL 4.35-5.85 Venous blood hemoglobin measurement (mass/volume) 15.1 g/dL 13.3-17.7 Blood hematocrit (volume fraction) 44 % 40-54 Automated erythrocyte mean corpuscular volume 84 [foz_us] 80-99 Automated erythrocyte mean corpuscular hemoglobin (mass per erythrocyte) 28 pg 25-34 Automated erythrocyte mean corpuscular hemoglobin concentration measurement ( mass/volume) 34 g/dL 32-36 Automated erythrocyte distribution width ratio 13.2 % 10.0-14.5 Automated blood platelet count (count/volume) 202 10*3/uL 130-400 Automated blood platelet mean volume measurement 9.6 [foz_us] 7.4-10.4 Automated blood neutrophils/100 leukocytes 68 % 42-75 Automated blood lymphocytes/100 leukocytes 21 % 12-44 Blood monocytes/100 leukocytes 11 % 0-12 Automated blood eosinophils/100 leukocytes 1 % 0-10 Automated blood basophils/100 leukocytes 0 % 0-10 Blood neutrophils automated count (number/volume) 4.4 10*3 1.8-7.8 Blood lymphocytes automated count (number/volume) 1.4 10*3 1.0-4.0 Blood monocytes automated count (number/volume) 0.7 10*3 0.0-1.0 Automated eosinophil count 0.0 10*3/uL 0.0-0.3 Automated blood basophil count (count/volume) 0.0 10*3/uL 0.0-0.1 Liver function panel (serum or plasma alk phos, alb, total and direct bili, total protein, ALT, AST) - 03/13/17 10:15 Serum or plasma total bilirubin measurement (mass/volume) 0.4 mg/dL 0.1-1.0 Serum or plasma alkaline phosphatase measurement (enzymatic activity/volume) 44 U/L 40-136 Serum or plasma aspartate aminotransferase measurement (enzymatic activity/ volume) 19 U/L 5-34 Serum or plasma alanine aminotransferase measurement (enzymatic activity/volume ) 17 U/L 0-55 Serum or plasma protein measurement (mass/volume) 7.4 g/dL 6.4-8.2 Serum or plasma albumin measurement (mass/volume) 4.7 g/dL 3.2-4.5 Bilirubin direct 0.1 mg/dL 0.0-0.3 Serum or plasma indirect bilirubin measurement (mass/volume) 0.3 mg/ dL NR Automated blood complete blood count (hemogram) panel - 07/19/18 15:51 Blood leukocytes automated count (number/volume) 8.4 10*3/uL 4.3-11.0 Blood erythrocytes automated count (number/volume) 5.26 10*6/uL 4.35-5.85 Venous blood hemoglobin measurement (mass/volume) 14.0 g/dL 13.3-17.7 Blood hematocrit (volume fraction) 42 % 40-54 Automated erythrocyte mean corpuscular volume 80 [foz_us] 80-99 Automated erythrocyte mean corpuscular hemoglobin (mass per erythrocyte) 27 pg 25-34 Automated erythrocyte mean corpuscular hemoglobin concentration measurement ( mass/volume) 33 g/dL 32-36 Automated erythrocyte distribution width ratio 14.2 % 10.0-14.5 Automated blood platelet count (count/volume) 314 10*3/uL 130-400 Automated blood platelet mean volume measurement 8.4 [foz_us] 7.4-10.4 Serum or plasma C reactive protein measurement (mass/volume) - 07/19/18 15:51 Serum or plasma C reactive protein measurement (mass/volume) 0.71 mg /dL 0.00-0.50 Stool occult blood screen - 07/19/18 15:59 Stool gastrointestinal hemoglobin detection POSITIVE NEGATIVE Stool leukocytes detection by light microscopy - 07/19/18 15:59 FECAL WBC RESULTS OCCASIONAL WBC OBSERVED ON DIRECT SMEAR NRG FECAL NOTE FECAL LEUKOCYTES MAY BE INTERMITTENTLY PRESENT OR NRG FECAL NOTE UNEVENLY DISTRIBUTED IN STOOL SPECIMENS, AND WBC NRG FECAL NOTE MORPHOLOGY DEGRADES DURING TRANSPORT NRG FECAL NOTE NOTE: NRG C DIFFICILE AG + TOXIN A/B. - 07/19/18 15:59 RESULTS NEGATIVE FOR ANTIGEN AND TOXIN A/B NRG Encounters ACCT No. Visit Date/Time Discharge Status Pt. Type Provider Facility Loc./Unit Complaint [id number] 09/07/2018 10:45:00 09/07/2018 11:31:00 DIS Outpatient ANDRE BERG MD [facility] PREOP COLONOSCOPY [id number] 08/02/2018 07:41:00 08/02/2018 23:59:59 CLS Outpatient RITESH PAK MD [facility] RAD HX OF CROHN'S,WEIGHT LOSS ,DIARRHEA [id number] 07/19/2018 15:35:00 07/19/2018 23:59:59 CLS Outpatient RITESH PAK MD [facility] LAB CROHN DISEASE [id number] 05/14/2017 09:00:00 05/14/2017 23:59:59 CLS Outpatient JAYSHREE LUCIANO DO [facility] CROHNS [id number] 01/07/2017 13:36:00 04/07/2017 00:01:00 DIS Outpatient ORENDER DO, JAYSHREE S [facility] CROHNS [id number] 03/13/2017 08:41:00 03/13/2017 23:59:59 CLS Outpatient ORENDER DO, JAYSHREE S [facility] R50.819 [id number] 01/01/2017 14:37:00 01/01/2017 23:59:59 CLS Outpatient JOVITA DOWELL APRN [facility] LAB Z02.0 [id number] 11/05/2016 13:14:00 11/05/2016 23:59:59 CLS Outpatient ORENDER DO, JAYSHREE S [facility] K50.819 [id number] 09/03/2016 12:27:00 09/03/2016 23:59:59 CLS Outpatient RAYMOND PERALTA [facility] CROHANS [id number] 07/02/2016 12:37:00 07/02/2016 23:59:59 CLS Outpatient ORENDER DO, JAYSHREE S [facility] CROHNS DISEASE [id number] 04/30/2016 08:18:00 04/30/2016 23:59:59 CLS Outpatient ORENDER DO, JAYSHREE S [facility] CROHNS [id number] 02/27/2016 08:17:00 02/27/2016 23:59:59 CLS Outpatient MARY ORDONEZ MD [facility] CHRONS [id number] 12/26/2015 14:01:00 12/26/2015 23:59:59 CLS Outpatient ORENDER DO, JAYSHREE S [facility] CROHNS [id number] 10/24/2015 14:17:00 10/24/2015 23:59:59 CLS Outpatient ORENDER DO, JAYSHREE S [facility] CROHN'S DISEASE [id number] 08/22/2015 08:31:00 08/22/2015 23:59:59 CLS Outpatient MARY ORDONEZ MD [facility] CH[place]S [id number] 06/21/2015 15:31:00 06/21/2015 23:59:59 CLS Outpatient MARY RODONEZ MD [facility] CHRONS [id number] 04/19/2015 08:19:00 04/19/2015 23:59:59 CLS Outpatient MARY ORDONEZ MD [facility] CHRONS [id number] 02/15/2015 09:43:00 02/15/2015 23:59:59 CLS Outpatient MARY ORDONEZ MD [facility] [place]S [id number] 10/12/2014 08:23:00 10/12/2014 23:59:59 CLS Outpatient MARY ORDONEZ MD [facility] [place]S [id number] 08/09/2014 14:19:00 08/09/2014 23:59:59 CLS Outpatient MARY ORDONEZ MD [facility] CHRONS [id number] 06/07/2014 14:25:00 06/07/2014 23:59:59 CLS Outpatient MARY ORDONEZ MD [facility] [place]RONS [id number] 04/05/2014 09:32:00 04/05/2014 23:59:59 CLS Outpatient MARY ORDONEZ MD [facility] [place] [id number] 02/01/2014 13:09:00 02/01/2014 23:59:59 CLS Outpatient MARY ORDONEZ MD [facility] CHROHN'S DISEASE [id number] 11/30/2013 14:26:00 11/30/2013 23:59:59 CLS Outpatient MARY ORDONEZ MD [facility] CROHN'S [id number] 09/27/2013 08:24:00 09/27/2013 23:59:59 CLS Outpatient MARY ORDONEZ MD [facility] CHRONS [id number] 08/10/2013 14:53:00 08/10/2013 23:59:59 CLS Outpatient MARY ORDONEZ MD [facility] CHRONS [id number] 06/08/2013 15:41:00 06/08/2013 23:59:59 CLS Outpatient MARY ORDONEZ MD [facility] CHRONS DISEASE [id number] 04/06/2013 08:33:00 04/06/2013 23:59:59 CLS Outpatient MARY ORDONEZ MD [facility] CHRONS DISEASE [id number] 04/06/2013 08:46:00 04/06/2013 16:22:00 DIS Outpatient MARY ORDONEZ MD [facility] CROHN'S [id number] 09/10/2018 12:00:00 PEN Preadmit ODETTE LANDRUM, ANUEL Zeng [facility] ENDO CROHNS/RECTAL BLEEDING [id number] 12/14/2014 08:12:00 Document Registration [id number] 12/31/2012 10:19:00 Document Registration [id number] 12/01/2012 08:38:00 Document Registration [id number] 2012 08:58:00 Document Registration [id number] 2012 08:48:00 Document Registration [id number] 05/26/2012 15:39:00 Document Registration [id number] 01/21/2012 08:29:00 Document Registration [id number] 11/03/2011 08:40:00 Document Registration [id number] 09/17/2011 12:06:00 Document Registration [id number] 07/16/2011 14:31:00 Document Registration [id number] 05/14/2011 08:30:00 Document Registration [id number] 03/10/2011 07:51:00 Document Registration [id number] 01/08/2011 14:43:00 Document Registration [id number] 11/22/2010 14:20:00 Document Registration [id number] 11/06/2010 13:41:00 Document Registration [id number] 09/04/2010 15:30:00 Document Registration [id number] 07/03/2010 15:24:00 Document Registration [id number] 06/20/2010 09:11:00 Document Registration [id number] 04/30/2010 08:11:00 Document Registration [id number] 02/27/2010 07:56:00 Document Registration [id number] 12/24/2009 09:04:00 Document Registration [id number] 10/24/2009 16:12:00 Document Registration [id number] 08/22/2009 07:49:00 Document Registration [id number] 06/21/2009 14:41:00 Document Registration [id number] 06/14/2009 15:54:00 Document Registration [id number] 04/18/2009 13:00:00 Document Registration [id number] 07/01/2013 10:42:00 07/01/2013 23:59:59 CLS Outpatient ANDREE ARAUJO DO 04/201709/09/2018 23:22:54 09/09/2018 23:59:59 CLS Outpatient Jayshree Luciano [id number] 06/21/2015 15:32:25 ACT Document Registration [id number] 07/23/2017 17:40:00 07/23/2017 23:59:59 CLS Outpatient YAAKOV MANCUSO [facility]
--- NOTE | 2018-09-13 10:59 | Conscious Sedation/ASA ---
Conscious Sedation Pre-Proced Time 10:59 ASA Score 2 For ASA 3 and 4: Consider anesthesia and medical clearance. Also, for patients with a history of failed moderate sedation consider anesthesia. Airway Lungs Heart ASA score ASA 1: a normal healthy patient ASA 2: a patient with a mild systemic disease (mid diabetes, controlled hypertension, obesity ASA 3: a patient with a severe systemic disease that limits activity (angina , COPD, prior Myocardial infarction) ASA 4: a patient with an incapacitating disease that is a constant threat to life (CHF, renal failure) ASA 5: a moribund patient not expected to survive 24 hrs. (ruptured aneurysm) ASA 6: a declared brain patient whose organs are being harvested. For emergent operations, add the letter E after the classification Mallampati Classification Grade 1 Sedation Plan Discussed options with patient/fam The patient is an appropriate candidate to undergo the planned procedure, sedation, and anesthesia. The patient immediately re-assessed prior to indication. ANDRE BERG MD Sep 13, 2018 10:59
--- NOTE | 2018-09-13 12:07 | Endo Procedure Record ---
Endo Procedure Report Date of Procedure Last Colonoscopy: Yes (2016) Sep 13, 2018 Surgeon (s) ANDRE BERG MD Post Procedure/Op Diagnosis anal skin tag Erythema with shallow ulcers of the distal sigmoid colon Serpiginous ulcers with slough extending from the descending colon to the proximal transverse colon Procedure Performed colonoscopy to cecum Multiple biopsies Description of Procedure Anesthesia Type: Conscious Sedation Specimen(s) collected/removed biopsy from transverse, descending and sigmoid colon Description of the Procedure Indication for the procedure: This gentleman was diagnosed with Crohn's colitis about 11 years ago and has been on therapy since. About 18 months ago, due to the lack of active disease on colonoscopy performed by a local freelance programmer/app developer, the decision to discontinue therapy was made. Over the last several months, he has developed recurrent symptoms including bleeding and abdominal pain. Therefore, repeating the colonoscopy and obtaining additional biopsies for histologic evaluation were felt to be appropriate. Informed consent was obtained after reviewing the procedure in detail. Description of procedure: He was placed in left lateral decubitus position and his vital signs were monitored. Conscious sedation was achieved using Versed and fentanyl. Examination of the perianal area revealed a tender skin tach. There was no fissure. Digital examination was otherwise unremarkable. The colonoscope was then introduced in the rectum and advanced to the cecum. It was then withdrawn slowly and the mucosa examined in a systematic fashion. Findings: 1.Erythema and shallow ulcers involving the distal sigmoid colon 2. Serpiginous ulcers with slough on the base, extending from the descending colon to the proximal transverse colon. There was an abrupt transition at this point with the ascending colon and the cecum being normal. Terminal ileum could not be intubated. Multiple biopsies from each segment of the affected colon were obtained. he tolerated the procedure well and was taken back to the nursing area in a stable condition. Impression: Previous Crohn's colitis. Evidence of colonoscopic relapse with ulceration. Biopsies pending Copy Copies To 1: DIMITRI POTTER XAVIER M MD Sep 13, 2018 12:07
--- NOTE | 2018-09-13 12:08 | Discharge Inst-Simple/Standard ---
Discharge Inst-Standard Discharge Medications New, Converted or Re-Newed RX: Other Patient Instructions/Follow Up Plan of Care/Instructions/FU: we shall call him once pathology reports become available Activity as Tolerated: Yes Discharge Diet: No Restrictions ANDRE BERG MD Sep 13, 2018 12:08
[2018-09-13 12:30] VITALS: BP 90/54
[2018-09-13 12:50] VITALS: BP 94/70
[2018-09-13 13:00] VITALS: BP 94/70
== END | disposition home or self-care (01) ==
LOC: ENDO 10:19
PROVIDERS: ATTEND Surgery
DX: K50.90 Crohn's disease, unspecified, without complications (principal); K63.3 Ulcer of intestine

== ENCOUNTER → 2018-09-14 | Outpatient (CLI) | payer BC, OTHER ==
[~2018-09-14] MED LIST changes: -MIDAZOLAM 2 MG/2 ML (VERSED) VIAL IVP ONE; -MIDAZOLAM 2 MG/2 ML (VERSED) VIAL ONE; -NS IV 500 ML 500 ML IV PRN; -NS IV 500 ML 500 ML ONE; -fentaNYL INJECTION 100 MCG/2 ML AMP IVP ONE; -fentaNYL INJECTION 100 MCG/2 ML AMP ONE
[2018-09-14 12:11] LABS: BASOPHILS % (AUTO) 0 % (0-10); EOSINOPHILS # (AUTO) 0.1 10^3/uL (0.0-0.3); EOSINOPHILS % (AUTO) 1 % (0-10); HEMATOCRIT 42 % (40-54); HEMOGLOBIN 13.9 G/DL (13.3-17.7); LYMPHOCYTES # (AUTO) 0.8 X 10^3 (1.0-4.0); LYMPHOCYTES % (AUTO) 9 % (12-44); MEAN CORPUSCULAR HEMOGLOBIN 25 PG (25-34); MEAN CORPUSCULAR HGB CONC 33 G/DL (32-36); MEAN CORPUSCULAR VOLUME 76 FL (80-99); MEAN PLATELET VOLUME 8.2 FL (7.4-10.4); MONOCYTES # (AUTO) 0.8 X 10^3 (0.0-1.0); MONOCYTES % (AUTO) 9 % (0-12); NEUTROPHILS # (AUTO) 7.2 X 10^3 (1.8-7.8); NEUTROPHILS % (AUTO) 81 % (42-75); PLATELET COUNT 431 10^3/uL (130-400); RED BLOOD COUNT 5.54 10^6/uL (4.35-5.85); RED CELL DISTRIBUTION WIDTH 14.5 % (10.0-14.5); WHITE BLOOD COUNT 8.9 10^3/uL (4.3-11.0)
[2018-09-14 12:28] LABS: ALANINE AMINOTRANSFERASE 15 U/L (0-55); ALBUMIN 3.6 GM/DL (3.2-4.5); ALKALINE PHOSPHATASE 42 U/L (40-136); BILIRUBIN,TOTAL 0.3 MG/DL (0.1-1.0); BUN/CREATININE RATIO 7; CARBON DIOXIDE 25 MMOL/L (21-32); CHLORIDE 107 MMOL/L (98-107); CREATININE SERUM 1.06 MG/DL (0.60-1.30); GFR ESTIMATED > 60; GLUCOSE 102 MG/DL (70-105); SODIUM 141 MMOL/L (135-145); TOTAL PROTEIN 6.8 GM/DL (6.4-8.2)
[2018-09-14 12:49] LABS: FREE T4 (FREE THYROXINE) 1.14 NG/DL (0.70-1.48)
== END ==
LOC: LAB 11:43
PROVIDERS: ATTEND Family Medicine
DX: K50.90 Crohn's disease, unspecified, without complications (principal)
CPT/HCPCS: 36415; 80053; 82607; 82728; 83540; 84439; 84443; 85025; 85652; 86141

== ENCOUNTER → 2020-10-04 | Outpatient (CLI) | payer BC, OTHER ==
[~2020-10-04] VITALS: Ht 177.8 cm; Wt 58.6 kg
[~2020-10-04] MED LIST changes: +ACETAMINOPHEN 325 MG TABLET PO SCH; +CATHETER FLUSH 10 ML SYR IV PRN; +HYDROCORTISONE 100 MG/2 ML (Solu-CORTEF) VIAL IV SCH; +PROMETHAZINE INJ 25 MG/ML (PHENERGAN) AMP IV SCH; +diphenhydrAMINE 50 MG/ML INJ (BENADRYL) IV SCH; +inFLIXimab 300 MG/NS 250 ML (EXCEL) IV SCH; +methylPREDNISolone 40 MG/ML (Solu-MEDROL) VIAL IV SCH
[2020-10-04 15:20] VITALS: BP 104/73
== END ==
LOC: SDC 12:07
PROVIDERS: ATTEND Internal Medicine Gastroenterology
DX: K50.00 Crohn's disease of small intestine without complications (principal)
CPT/HCPCS: 96365; 96366; 96374

== ENCOUNTER → 2020-11-29 | Outpatient (CLI) | payer OTHER ==
[~2020-11-29] VITALS: Ht 177 cm; Wt 66.6 kg
[~2020-11-29] MED LIST changes: -ACETAMINOPHEN 325 MG TABLET PO SCH; -CATHETER FLUSH 10 ML SYR IV PRN; -HYDROCORTISONE 100 MG/2 ML (Solu-CORTEF) VIAL IV SCH; +diphenhydrAMINE 25 MG TAB (BENADRYL) PO SCH; -diphenhydrAMINE 50 MG/ML INJ (BENADRYL) IV SCH
[2020-11-29 12:05] VITALS: BP 122/67
== END ==
LOC: SDC 11:36
PROVIDERS: ATTEND Internal Medicine Gastroenterology
DX: K50.90 Crohn's disease, unspecified, without complications (principal)
CPT/HCPCS: 96365; 96366; 96374

== ENCOUNTER 2021-01-24 10:55 | Outpatient (CLI) | payer OTHER ==
[~2021-01-24] VITALS: Ht 162 cm; Wt 68.2 kg
[~2021-01-24 10:55] MED LIST changes: -PROMETHAZINE INJ 25 MG/ML (PHENERGAN) AMP IV SCH; -diphenhydrAMINE 25 MG TAB (BENADRYL) PO SCH; -inFLIXimab 300 MG/NS 250 ML (EXCEL) IV SCH; -methylPREDNISolone 40 MG/ML (Solu-MEDROL) VIAL IV SCH
[2021-01-24 11:30] VITALS: BP 118/71
[2021-01-24] MEDS ORDERED: diphenhydrAMINE 25 MG TAB (BENADRYL) PO ONE (11:30)
[2021-01-24] MEDS ORDERED: PROMETHAZINE INJ 25 MG/ML (PHENERGAN) AMP IVP ONE (11:30)
[2021-01-24] MEDS ORDERED: methylPREDNISolone 40 MG/ML (Solu-MEDROL) VIAL IVP ONE (11:30)
[2021-01-24] MEDS ORDERED: inFLIXimab 300 MG/NS 250 ML (EXCEL) IV SCH ×2 (11:30)
[2021-01-24] MEDS ORDERED: methylPREDNISolone 40 MG/ML (Solu-MEDROL) VIAL IVP SCH (11:45)
[2021-01-24] MEDS ORDERED: diphenhydrAMINE 25 MG TAB (BENADRYL) PO SCH (11:45)
[2021-01-24] MEDS ORDERED: PROMETHAZINE INJ 25 MG/ML (PHENERGAN) AMP IVP SCH (11:45)
== END 2021-01-24 14:05 ==
LOC: SDC 10:55
PROVIDERS: ATTEND Internal Medicine Gastroenterology
DX: K50.00 Crohn's disease of small intestine without complications (principal)
CPT/HCPCS: 96365; 96366; 96374

== ENCOUNTER 2021-03-21 11:09 | Outpatient (CLI) | payer OTHER ==
[~2021-03-21] VITALS: Wt 68.2 kg
[2021-03-21 11:20] VITALS: BP 119/71
[2021-03-21] MEDS ORDERED: ACETAMINOPHEN 500 MG TAB (TYLENOL) PO SCH (11:30)
[2021-03-21] MEDS ORDERED: methylPREDNISolone 40 MG/ML (Solu-MEDROL) VIAL IVP SCH (11:30)
[2021-03-21] MEDS ORDERED: PROMETHAZINE INJ 25 MG/ML (PHENERGAN) AMP IVP SCH (11:30)
[2021-03-21] MEDS ORDERED: inFLIXimab 300 MG/NS 250 ML (EXCEL) IV SCH ×2 (11:30)
[2021-03-21] MEDS ORDERED: diphenhydrAMINE 25 MG TAB (BENADRYL) PO SCH (11:30)
== END 2021-03-21 14:10 ==
LOC: SDC 11:09
PROVIDERS: ATTEND Internal Medicine Gastroenterology
DX: K50.00 Crohn's disease of small intestine without complications (principal)
CPT/HCPCS: 96365; 96366; 96375

== ENCOUNTER → 2021-03-21 | Outpatient (CLI) | payer OTHER ==
[2021-03-21 12:23] LABS: BASOPHILS % (AUTO) 1 % (0-10); EOSINOPHILS % (AUTO) 0 % (0-10); HEMATOCRIT 43 % (40-54); HEMOGLOBIN 14.6 g/dL (13.3-17.7); LYMPHOCYTES # (AUTO) 1.4 10^3/uL (1.0-4.0); LYMPHOCYTES % (AUTO) 27 % (12-44); MEAN CORPUSCULAR HEMOGLOBIN 29 pg (25-34); MEAN CORPUSCULAR HGB CONC 34 g/dL (32-36); MEAN CORPUSCULAR VOLUME 85 fL (80-99); MEAN PLATELET VOLUME 9.1 fL (9.0-12.2); MONOCYTES # (AUTO) 0.3 10^3/uL (0.0-1.0); MONOCYTES % (AUTO) 6 % (0-12); NEUTROPHILS # (AUTO) 3.5 10^3/uL (1.8-7.8); NEUTROPHILS % (AUTO) 67 % (42-75); PLATELET COUNT 223 10^3/uL (130-400); WHITE BLOOD COUNT 5.3 10^3/uL (4.3-11.0)
[2021-03-21 12:47] LABS: BUN/CREATININE RATIO 16; CARBON DIOXIDE 29 MMOL/L (21-32); CHLORIDE 103 MMOL/L (98-107); CREATININE SERUM 0.88 MG/DL (0.60-1.30); SODIUM 139 MMOL/L (135-145)
[2021-03-21 12:48] LABS: ALANINE AMINOTRANSFERASE 10 U/L (0-55); ALBUMIN 4.4 GM/DL (3.2-4.5); ALKALINE PHOSPHATASE 32 U/L (40-136); BILIRUBIN,TOTAL 0.5 MG/DL (0.1-1.0); CALCIUM 9.9 MG/DL (8.5-10.1); GFR ESTIMATED > 60; GLUCOSE 102 MG/DL (70-105); TOTAL PROTEIN 7.4 GM/DL (6.4-8.2)
[2021-03-21 13:07] LABS: ERYTHROCYTE SEDIMENTATION RATE 1 MM/HR (0-15)
== END ==
LOC: LAB 11:15
PROVIDERS: ATTEND Family Medicine
DX: K50.90 Crohn's disease, unspecified, without complications (principal); Z86.2 Personal history of diseases of the blood and blood-forming organs and certain disorders involving the immune mechanism
CPT/HCPCS: 36415; 80053; 82607; 84443; 85025; 85652

== ENCOUNTER → 2021-05-16 | Outpatient (CLI) | payer OTHER ==
[~2021-05-16] VITALS: Ht 177.8 cm; Wt 68.2 kg
[~2021-05-16] MED LIST changes: +ACETAMINOPHEN 500 MG TAB (TYLENOL) ONE; +ACETAMINOPHEN 500 MG TAB (TYLENOL) PO SCH; +PROMETHAZINE INJ 25 MG/ML (PHENERGAN) AMP IVP SCH; +diphenhydrAMINE 25 MG TAB (BENADRYL) PO SCH; +inFLIXimab 300 MG/NS 250 ML (EXCEL) IV SCH; +methylPREDNISolone 40 MG/ML (Solu-MEDROL) VIAL IVP SCH; +methylPREDNISolone 40 MG/ML (Solu-MEDROL) VIAL ONE
[2021-05-16 13:05] VITALS: BP 110/71
== END ==
LOC: SDC 10:11
PROVIDERS: ATTEND Internal Medicine Gastroenterology
DX: Z00.00 Encounter for general adult medical examination without abnormal findings (principal); K50.90 Crohn's disease, unspecified, without complications; Z86.2 Personal history of diseases of the blood and blood-forming organs and certain disorders involving the immune mechanism; Z79.899 Other long term (current) drug therapy
CPT/HCPCS: 96365; 96366; 96374

== ENCOUNTER → 2021-07-11 | Outpatient (CLI) | payer OTHER ==
[~2021-07-11] VITALS: Ht 177.2 cm; Wt 68.2 kg
[~2021-07-11] MED LIST changes: -ACETAMINOPHEN 500 MG TAB (TYLENOL) ONE; -ACETAMINOPHEN 500 MG TAB (TYLENOL) PO SCH; -PROMETHAZINE INJ 25 MG/ML (PHENERGAN) AMP IVP SCH; -diphenhydrAMINE 25 MG TAB (BENADRYL) PO SCH; -methylPREDNISolone 40 MG/ML (Solu-MEDROL) VIAL IVP SCH; -methylPREDNISolone 40 MG/ML (Solu-MEDROL) VIAL ONE
[2021-07-11 11:00] VITALS: BP 104/60
== END ==
LOC: SDC 11:03
PROVIDERS: ATTEND Internal Medicine
DX: K50.90 Crohn's disease, unspecified, without complications (principal)
CPT/HCPCS: 96365; 96366

== ENCOUNTER → 2021-09-05 | Outpatient (CLI) | payer OTHER ==
[2021-09-05 11:45] VITALS: BP 106/67
== END ==
LOC: SDC 11:07
PROVIDERS: ATTEND Internal Medicine
DX: K50.90 Crohn's disease, unspecified, without complications (principal)
CPT/HCPCS: 96365; 96366

== ENCOUNTER → 2021-11-07 | Outpatient (CLI) | payer OTHER ==
[~2021-11-07] VITALS: Ht 177.8 cm; Wt 68.2 kg
[2021-11-07 12:14] VITALS: BP 103/62
== END ==
LOC: SDC 11:00
PROVIDERS: ATTEND Internal Medicine
DX: K50.90 Crohn's disease, unspecified, without complications (principal)
CPT/HCPCS: 96365; 96366

== ENCOUNTER → 2022-02-27 | Outpatient (CLI) | payer OTHER ==
[~2022-02-27] VITALS: Ht 68.9 cm; Wt 68.9 kg
[~2022-02-27] MED LIST changes: +INFLIXIMAB FOR IV SCH; +NORMAL SALINE IV SCH; -inFLIXimab 300 MG/NS 250 ML (EXCEL) IV SCH
[2022-02-27 11:35] VITALS: BP 97/66
== END ==
LOC: SDC 11:03
PROVIDERS: ATTEND Internal Medicine
DX: K50.90 Crohn's disease, unspecified, without complications (principal)
CPT/HCPCS: 96365; 96366

== ENCOUNTER 2022-04-28 10:29 | Outpatient (CLI) | payer OTHER ==
[~2022-04-28] VITALS: Wt 68.1 kg
[~2022-04-28 10:29] MED LIST changes: -INFLIXIMAB FOR IV SCH; -NORMAL SALINE IV SCH
[2022-04-28 10:30] VITALS: BP 116/80
[2022-04-28] MEDS ORDERED: inFLIXimab 300 MG/NS 250 ML (EXCEL) IV SCH ×2 (11:00)
== END 2022-04-28 14:10 | disposition home or self-care (01) ==
LOC: SDC 10:29
PROVIDERS: ATTEND Internal Medicine
DX: K50.90 Crohn's disease, unspecified, without complications (principal)
CPT/HCPCS: 96365; 96366

== ENCOUNTER → 2022-06-26 | Outpatient (CLI) | payer OTHER ==
[~2022-06-26] VITALS: Ht 68.9 cm; Wt 68.1 kg
[~2022-06-26] MED LIST changes: +INFLIXIMAB FOR IV ONE; +NS IV ONE
[2022-06-26 13:25] VITALS: BP 107/66
== END ==
LOC: SDC 10:37
PROVIDERS: ATTEND Internal Medicine
DX: K50.90 Crohn's disease, unspecified, without complications (principal)
CPT/HCPCS: 96365; 96366

== ENCOUNTER 2022-08-28 10:26 | Outpatient (CLI) | payer OTHER ==
[~2022-08-28] VITALS: Wt 68.6 kg
[~2022-08-28 10:26] MED LIST changes: -INFLIXIMAB FOR IV ONE; -NS IV ONE
[2022-08-28] MEDS ORDERED: inFLIXimab 300 MG/NS 250 ML (EXCEL) IV ONE ×2 (11:00)
[2022-08-28 12:39] VITALS: BP 103/78
== END 2022-08-28 13:30 ==
LOC: SDC 10:26
PROVIDERS: ATTEND Internal Medicine
DX: K50.90 Crohn's disease, unspecified, without complications (principal)
CPT/HCPCS: 96365; 96366

== ENCOUNTER → 2022-10-24 | Outpatient (CLI) | payer OTHER ==
[~2022-10-24] MED LIST changes: +inFLIXimab 300 MG/NS 250 ML (EXCEL) IV SCH
[2022-10-24 12:58] VITALS: BP 113/67
== END ==
LOC: SDC 09:46
PROVIDERS: ATTEND Internal Medicine
DX: K50.90 Crohn's disease, unspecified, without complications (principal)
CPT/HCPCS: 96365; 96366

== ENCOUNTER 2022-12-17 05:44 | Outpatient (CLI) | payer OTHER ==
[~2022-12-17] VITALS: Ht 177.8 cm; Wt 68.9 kg
[~2022-12-17 05:44] MED LIST changes: -inFLIXimab 300 MG/NS 250 ML (EXCEL) IV SCH
[2022-12-18] MEDS ORDERED: INFL100V IV (15:44)
== END 2022-12-18 15:46 | disposition home or self-care (01) ==
LOC: PREOP 05:44
PROVIDERS: ATTEND Internal Medicine
DX: Z01.818 Encounter for other preprocedural examination (principal)

== ENCOUNTER → 2022-12-25 | Outpatient (CLI) | payer OTHER ==
[~2022-12-25] VITALS: Wt 70.4 kg
[~2022-12-25] MED LIST changes: +INFL100V IV; +inFLIXimab 300 MG/NS 250 ML (EXCEL) IV SCH
[2022-12-25 10:41] VITALS: BP 113/85
== END ==
LOC: SDC 10:07
PROVIDERS: ATTEND Internal Medicine
DX: K50.90 Crohn's disease, unspecified, without complications (principal)
CPT/HCPCS: 96365; 96366

== ENCOUNTER 2022-12-26 07:29 | Day surgery (SDC) | payer OTHER ==
--- NOTE | 2022-12-16 07:55 | HISTORY AND PHYSICAL ---
DATE OF SERVICE: 12/26/2022 COLONOSCOPY HISTORY AND PHYSICAL HISTORY OF PRESENT ILLNESS: The patient is a 27-year-old white male with over a 5-year history for Crohn's disease. He is being set up for colonoscopic surveillance. He is on active Remicade and reports he has baseline two formed stools per day without blood. Denies abdominal pain. There has been no change in weight or energy level. He denies arthralgia. 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 PHYSICAL EXAMINATION: GENERAL: Reveals a white male, appeared to be in no acute distress. VITAL SIGNS: Weight 156.2 pounds, blood pressure 108/70. HEENT: Unremarkable. Sclerae nonicteric. CHEST: Clear to auscultation. CARDIOVASCULAR: Reveals a regular rate and rhythm without murmur, S3, or S4. ABDOMEN: Soft, supple without mass, organomegaly, or tenderness. EXTREMITIES: No cyanosis, clubbing or edema. ASSESSMENT AND PLAN: 1. Crohn's, appears to be under good symptomatic control on Remicade. Continue. No effects from the medication. He is due for surveillance colonoscopy, which is being set up. Prep instructions were given and questions were answered. We will see him back in 6 months for a wellness examination and obtain a CBC, CMP, lipid panel, and TSH at that time. Job ID: [id number] DocumentID: [id number] Dictated Date: 12/11/2022 17:12:48 Technical Photographer Date: 12/11/2022 17:41:00 Dictated By: ANUEL PINO MD
[~2022-12-26] VITALS: Ht 177.8 cm; Wt 70.4 kg
[2022-12-26] VITALS (8 sets, daily range): BP systolic 75–110; BP diastolic 43–68
[~2022-12-26 07:29] MED LIST changes: -inFLIXimab 300 MG/NS 250 ML (EXCEL) IV SCH
[2022-12-26] MEDS ORDERED: LACTATED RINGERS 1,000 ML IV STA (07:32)
[2022-12-26] MEDS ORDERED: PROPOFOL INJECTION 50 ML IV ONE (07:47)
[2022-12-26] MEDS ORDERED: MIDAZOLAM 2 MG/2 ML (VERSED) VIAL ONE (07:47)
--- NOTE | 2022-12-26 07:54 | Pre-Op Note & Conscious Sedat ---
Pre-Operative Progress Note Date H&P Reviewed: Dec 26, 2022 Time H&P Reviewed: 07:54 History & Physical: H&P Reviewed, Patient Examed, No changes noted Pre-Op Diagnosis: chron's disease Moderate Sedation PreProcedure ASA Score 2 Airway Lungs Heart ASA score ASA 1: a normal healthy patient ASA 2: a patient with a mild systemic disease (mid diabetes, controlled hypertension, obesity ASA 3: a patient with a severe systemic disease that limits activity (angina, COPD, prior Myocardial infarction) ASA 4: a patient with an incapacitating disease that is a constant threat to life (CHF, renal failure) ASA 5: a moribund patient not expected to survive 24 hrs. (ruptured aneurysm) ASA 6: a declared brain- patient whose organs are being harvested. For emergent operations, add the letter E after the classification Mallampati Classification Grade 1 Sedation Plan Analgesia, Amnesia, Plan communicated to team members, Discussed options with patient/fam, Discussed risks with patient/fam The patient is an appropriate candidate to undergo the planned procedure, sedation, and anesthesia. The patient immediately re-assessed prior to indication. ANUEL PINO MD Dec 26, 2022 07:54
[2022-12-26] MEDS ORDERED: SIMETHICONE 40 MG/0.6 ML (MYLICON DROPS) 30 ML BTL PO PRN (08:40)
[2022-12-26] MEDS ORDERED: SIMETHICONE 40 MG/0.6 ML (MYLICON DROPS) 30 ML BTL ONE (08:43)
[2022-12-26] MEDS ORDERED: proPOfol 200 MG/20 ML (DIPRIVAN) VIAL IV ONE (08:49)
--- NOTE | 2022-12-26 09:01 | Progress Note-Post Operative ---
Post-Procedure Note Physician (s)/Pole Climber (s) Physician ANUEL PINO MD Pre-Procedure Diagnosis Pre-Procedure Diagnosis: chron's disease Post-Procedure Diagnosis Post-operative diagnosis: Prior to undergoing colonoscopy digital rectal evaluation was performed. Anal sphincter tone was normal and the perianal reflex was intact. No abnormalities noted digital inspection anal canal distal rectal vault and the prostate was unremarkable to digital inspection as well. The colonoscope was then inserted into the rectum and under direct visualization advanced to the cecum. The cecum was identified by identification of the ileocecal valve and cecal strap. Photographic documentation was obtained. A careful inspection was made as the colonoscope was withdrawn. The distal 10 to 15 cm of terminal ileum were inspected as well. Quality the prep was good. Findings: There are no evidence for internal or external hemorrhoids. The rectum, sigmoid colon, descending colon, splenic flexure, transverse colon, hepatic flexure, ascending colon and cecum were unremarkable with no evidence for inflammatory change polyps or diverticular disease. Several small 2 to 3 mm shallow ulcerations were noted in the terminal ileum without any background erythema. A quality assurance representative 1 was biopsied and submitted for histopathology. A/P 1. Several small shallow 2 to 3 mm ulcers are noted in terminal ileum without evidence for stricture formation or significant background inflammation likely Crohn's related biopsies were obtained. We will likely increase Remicade by 100 mg every 6 weeks. Considering recent studies indicative of zinc deficiency and inflammatory bowel disease being very common will advise patient to replace with 50 mg daily as well. Likely repeat surveillance in 5 years. ANUEL PINO MD Dec 26, 2022 09:01
--- NOTE | 2022-12-26 10:19 | Anesthesia-General Post-Op ---
MAC Patient Condition Mental Status/LOC: Same as Preop Cardiovascular: Satisfactory Nausea/Vomiting: Absent Respiratory: Satisfactory Pain: Controlled Complications: Absent Post Op Complications Complications None Follow Up Care/Instructions Patient Instructions None needed. Anesthesiology Discharge Order Discharge Order Patient is doing well, no complaints, stable vital signs, no apparent adverse anesthesia problems. No complications reported per nursing. MITRA BLACK CRNA Dec 26, 2022 10:19
== END 2022-12-26 09:57 | disposition home or self-care (01) ==
LOC: ENDO 07:29
PROVIDERS: ATTEND Internal Medicine
DX: K50.90 Crohn's disease, unspecified, without complications (principal); K52.9 Noninfective gastroenteritis and colitis, unspecified; Z79.899 Other long term (current) drug therapy
CPT/HCPCS: 88305

== ENCOUNTER → 2023-02-19 | Outpatient (CLI) | payer OTHER ==
[~2023-02-19] VITALS: Wt 70.4 kg
[~2023-02-19] MED LIST changes: +inFLIXimab 300 MG/NS 250 ML (EXCEL) IV SCH
[2023-02-19 10:40] VITALS: BP 113/74
== END ==
LOC: SDC 10:05
PROVIDERS: ATTEND Internal Medicine
DX: K50.90 Crohn's disease, unspecified, without complications (principal)
CPT/HCPCS: 96365; 96366

== ENCOUNTER → 2023-06-11 | Outpatient (CLI) | payer OTHER ==
[2023-06-11 12:55] VITALS: BP 109/65
== END ==
LOC: SDC 12:42
PROVIDERS: ATTEND Internal Medicine
DX: K50.90 Crohn's disease, unspecified, without complications (principal)
CPT/HCPCS: 96365

== ENCOUNTER → 2023-08-06 | Outpatient (CLI) | payer OTHER ==
[~2023-08-06] VITALS: Ht 176 cm; Wt 70.1 kg
[2023-08-06 13:07] VITALS: BP 112/74
== END ==
LOC: SDC 12:28
PROVIDERS: ATTEND Internal Medicine
DX: K50.90 Crohn's disease, unspecified, without complications (principal)
CPT/HCPCS: 96365; 96366